=== PATIENT | female | born 1950 | race Caucasian/White ===

== ENCOUNTER 2018-04-28 18:59 | Inpatient (IN) | payer MEDICARE ==
[~2018-04-28] VITALS: Ht 165.1 cm; Wt 74.8 kg
--- NOTE | 2018-04-28 18:59 | NUR ---
BIB SMART TEAM ON 5150 HOLD FOR MEDICAL CLEARANCE TO [facility] DUE TO DEPRESSION WITH SUICIDAL IDIATION. VSS NAD A/OX3 ABLE TO MAKE NEEDS KNOWN. PT IS NOTED ACTING MANIC. WILL CONITNUE TO MONITOR FOR ANY CHANGES DURING THE SHIFT.
[2018-04-28 20:08] LABS: BASOPHILS % (AUTO) 0.4 % (0.0-2.0); EOSINOPHILS % (AUTO) 0.4 % (0.0-6.0); HEMATOCRIT 42 % (33-45); HEMOGLOBIN 14.4 g/dL (11.5-14.8); LYMPHOCYTES # (AUTO) 1.5 /CMM (0.8-4.8); MEAN CORPUSCULAR HEMOGLOBIN 31 PG (26.0-33.0); MEAN CORPUSCULAR HGB CONC 34 g/dl (31.0-36.0); MEAN CORPUSCULAR VOLUME 90 fL (82-100); MONOCYTES # (AUTO) 0.4 /CMM (0.1-1.30); MONOCYTES % (AUTO) 3.9 % (2.0-12.0); NEUTROPHILS # (AUTO) 7.5 /CMM (1.8-8.9); NEUTROPHILS % (AUTO) 79.3 % (43.0-81.0); PLATELET COUNT (AUTO) 308 /CMM (150-450); RDW COEFFICIENT OF VARIATION 12.7 (11.5-15.0); RED BLOOD CELL COUNT(AUTO) 4.72 MIL/uL (4.0-5.2); WHITE BLOOD COUNT (AUTO) 9.4 K/uL (4.3-11.0)
[2018-04-28 20:19] LABS: CALCIUM, SERUM 9.3 mg/dL (8.5-10.1)
[2018-04-28 20:30] VITALS: BP 135/84
--- NOTE | 2018-04-28 20:30 | NUR ---
GPS-RN ADMITTED A 67-Y/O FEMALE, ADMITTED FROM ER INITIALLY FROM HOME. PATIENT ADMITTED ON 5150 PER HOLD PATIENT STATED " THE VOICES ARE TELLING ME TO KILL MYSELF AND I WANT TO ". UPON FACE TO FACE ASSESSMENT, PATIENT APPEARS TO BE ALERT, ORIENTED X1, CONFUSED, ANXIOUS, RESTLESS, EASILY AGITATED, NEEDY AND IRRITABLE. NO ACUTE DISTRESS NOTED. CONTINENT OF BOWEL AND BLADDER. NO C/O PAIN OR DISCOMFORT AT THIS TIME. AMBULATORY WITH A STEADY GAIT. DENIES ANY S/I OR HI AT THIS TIME. PATIENT STILL HEARING VOICES "TELLING HER THAT SHE'S GONNA BE FINE" AND HER RASHES CAME FROM [facility]. BELONGINGS INVENTORIED AND CHECKED FOR CONTRABAND. REVIEWED PATIENT'S RIGHTS. PATIENT IS UNDER THE PSYCHIATRIC CARE OF DR. GLOVER, ORDERS OBTAINED, AND UNDER THE MEDICAL CARE OF EDILMA, NOTIFIED OF ADMISSION AND MED RECON DONE. SKIN ASSESSMENT DONE AND NOTED GENERALIZED RASH, REDNESS UNDER RIGHT EYE, BILATERAL WRIST BRUISES. MRSA SCREENING DONE. BED LOCKED AND PLACED IN LOWEST POSITION. ROOM SAFETY CHECKED. FALL PRECAUTIONS MAINTAINED. WILL CONTINUE TO MONITOR Q15MIN ROUNDS FOR SAFETY.
--- NOTE | 2018-04-28 20:50 | NUR ---
REPORT GIVEN TO CHARGE NURSE IN [facility]
[2018-04-28 20:54] LABS: APPEARANCE,URINE Clear (CLEAR); BILIRUBIN,URINE Negative (NEGATIVE); BLOOD, URINE Trace-intact Ery/uL (NEGATIVE); COLOR,URINE Yellow (YELLOW); KETONES,URINE 40 (NEGATIVE); LEUKOCYTE ESTERASE ,URINE Small (NEGATIVE); NITRITE, URINE Negative (NEGATIVE); PROTEIN,URINE Negative (NEGATIVE); UGLUCOSE Negative (NEGATIVE); UROBILINOGEN,URINE 0.2 EU/dL (0.2)
[2018-04-28 21:06] LABS: BACTERIA,URINE 2+ /HPF (None Seen); MUCUS,URINE Few /LPF (None Seen); SQUAMOUS EPITHELIAL CELL,UR Few /HPF (None Seen); WBC,URINE 21-50 /HPF (0-3)
[2018-04-28] MEDS ORDERED: TEMAZEPAM 7.5 MG CAPSULE PO PRN (21:30)
[2018-04-28] MEDS ORDERED: MAGNESIUM HYDROXIDE 30 ML UDC PO PRN (21:30)
[2018-04-28] MEDS ORDERED: ACETAMINOPHEN 325 MG TABLET PO PRN (21:30)
[2018-04-28] MEDS ORDERED: LORAZEPAM 1 MG TABLET PO PRN (21:30)
[2018-04-28] MEDS ORDERED: MAG HYDROX/AL HYDROX/SIMETH 30 ML UDC PO PRN (21:30)
[2018-04-28] MEDS ORDERED: ASPI-1169 PO (22:12)
[2018-04-28] MEDS ORDERED: SERT50TA PO (22:12)
--- NOTE | 2018-04-28 22:30 | NUR ---
GP-RN CALLED DR. FRANCE REGARDING PATIENT'S GENERALIZED RASH, PER MD NO NEW ORDERS GIVEN. HAVE THE WOUND CARE NURSE ASSESS PATIENT IN THE MORNING. HANDWASHING TECHNIQUE OBSERVED AT ALL TIMES. WILL CONTINUE TO MONITOR.
[2018-04-29 08:00] VITALS: BP 147/73
[2018-04-29] MEDS: ASPIRIN 81 MG TAB.CHEW PO SCH (08:36)
--- NOTE | 2018-04-29 11:13 | NUR ---
GPS/RN PER DR JUAN ALBERTO AHUMADA, PUT IN ORDER FOR SKIN SCRAPPING TO RULE OUT SCABIES. NOTIFIED ANOMI IN INFECTION CONTROL.
[2018-04-29] MEDS: CEPHALEXIN MONOHYDRATE 500 MG CAPSULE PO SCH ×2 (12:15→20:45)
[2018-04-29] MEDS: risperiDONE 1 MG TABLET PO SCH ×2 (14:39→17:16)
[2018-04-29] MEDS: BENZTROPINE MESYLATE (1 MG) 1 MG TABLET PO SCH ×2 (14:39→17:15)
[2018-04-29] MEDS: SERTRALINE HCL 25 MG TABLET PO SCH (14:39)
--- NOTE | 2018-04-29 15:03 | NUR ---
WOUND CARE CONSULT: PT PRESENTS WITH BUMPY RASH WITH TINY SCABS AND SCRATCH CUENCA ON BACK, ARMS AND LEGS, FEW ON CHEST, PRESENT ON ADMISSION. PT HAVING SKIN SCRAPING BY INFECTION CONTROL NURSE. PT ALSO NOTED TO HAVE REDNESS AROUND EYES, ESPECIALLY RT EYE AND REDNESS, BRUISING ON WRISTS, PRESENT ON ADMISSION. PT IS INDEPENDENT WITH BED MOBILITY AND CONTINENT. DEFER TO MD FOR RASH/BUMPS. WILL SEE PRN. MD IN AGREEMENT WITH PLAN OF CARE. Addendum: 04/29/18 at 1505 by DENISE MIRANDA WNDNU Amended: Links added.
--- NOTE | 2018-04-29 15:19 | NUR ---
GPS/RN SEEN BY INFECTION CONTROL (NAOMI) SCRAPING DONE. SEEN Y WOUND NURSE
--- NOTE | 2018-04-29 15:23 | NUR ---
GPS/RN SAMPLE FROM SCRAPING TAKEN TO LAB.
[2018-04-29 16:00] VITALS: BP 124/67
--- NOTE | 2018-04-29 17:56 | NUR ---
GPS/RN PATHOLOGY STILL PENDING TO RULE OUT SCABIES.
[2018-04-29 21:00] VITALS: BP 126/63
[2018-04-30 08:00] VITALS: BP 120/68
[2018-04-30] MEDS: ASPIRIN 81 MG TAB.CHEW PO SCH (08:25)
[2018-04-30] MEDS: CEPHALEXIN MONOHYDRATE 500 MG CAPSULE PO SCH ×2 (08:25→21:34)
[2018-04-30] MEDS: BENZTROPINE MESYLATE (1 MG) 1 MG TABLET PO SCH ×2 (08:25→18:09)
[2018-04-30] MEDS: SERTRALINE HCL 25 MG TABLET PO SCH (08:26)
[2018-04-30] MEDS: risperiDONE 1 MG TABLET PO SCH ×2 (08:26→18:09)
--- NOTE | 2018-04-30 08:30 | NUR ---
GPS RN NOTE: RECEIVED PATIENT AWAKE AND ALERT X 3, SITTING IN BED. CONTACT ISOLATION FOR PRESUMED SCABIES, RESULTS PENDING. PATIENT MED COMPLIANT, EATING WELL. STATES NOT HEARING VOICES, HAS RACING THOUGHTS WHICH SHE STATES ARE IMPROVING SINCE YESTERDAY. DENIES PAIN, SI/HI/HALLUCINATIONS AND IN NO APPARENT DISTRESS. WILL CONTINUE TO MONITOR FOR SAFETY AND COMFORT Q 15 MINUTES.
[2018-04-30 08:35] LABS: BASOPHILS # (AUTO) 0.2 /CMM (0.0-0.2); BASOPHILS % (AUTO) 3.1 % (0.0-2.0); EOSINOPHILS % (AUTO) 0.7 % (0.0-6.0); HEMATOCRIT 45 % (33-45); HEMOGLOBIN 15.2 g/dL (11.5-14.8); LYMPHOCYTES # (AUTO) 1.3 /CMM (0.8-4.8); LYMPHOCYTES % (AUTO) 19.2 % (20.0-44.0); MEAN CORPUSCULAR HEMOGLOBIN 31 PG (26.0-33.0); MEAN CORPUSCULAR HGB CONC 34 g/dl (31.0-36.0); MEAN CORPUSCULAR VOLUME 90 fL (82-100); MONOCYTES # (AUTO) 0.4 /CMM (0.1-1.30); MONOCYTES % (AUTO) 6.1 % (2.0-12.0); NEUTROPHILS % (AUTO) 70.9 % (43.0-81.0); PLATELET COUNT (AUTO) 325 /CMM (150-450); RDW COEFFICIENT OF VARIATION 12.3 (11.5-15.0); RED BLOOD CELL COUNT(AUTO) 4.99 MIL/uL (4.0-5.2); WHITE BLOOD COUNT (AUTO) 6.9 K/uL (4.3-11.0)
[2018-04-30 08:51] LABS: BILIRUBIN,TOTAL 0.6 mg/dL (0.2-1.0); CALCIUM, SERUM 9.3 mg/dL (8.5-10.1); POTASSIUM 3.9 mmol/L (3.5-5.1); TOTAL PROTEIN, SERUM 7.5 g/dL (6.4-8.2)
--- NOTE | 2018-04-30 13:05 | NUR ---
PATIENT SCRAPINGS NEG FOR SCABIES, DISCONTINUED CONTACT ISOLATION PER INFECTION CONTROL. PATIENT MADE AWARE OF STATUS. NO DISTRESS, NO COMPLAINTS AT THIS TIME.
--- NOTE | 2018-04-30 14:40 | NUR ---
INITIAL DISCHARGE PLAN: Pt wishes to return home to [address] [place] [address] [address] [place] [address] . HOLLIE will help form a safe and proper discharge home in collaboration with .
--- NOTE | 2018-04-30 14:40 | NUR ---
SW attempted to contact pts sister Latisha Davis [phone] to discuss initial discharge plan. SW was unable to reach and left a voicemail for callback.
[2018-04-30 16:00] VITALS: BP 136/80
--- NOTE | 2018-04-30 16:05 | NUR ---
GPS CONTACT CENTER CONSULTANT NOTE: RECEIVED TRANSFER ORDERS TO [facility] PER MD, PATIENT HAS BACTERIAL INFECTION E. COLI, KLEBSIELLA ORGANISMS IN DISCHARGE FROM [facility]. PATIENT MADE AWARE OF REASON FOR TRANSFER, FAMILY MADE AWARE OF NEW ROOM AND REASON FOR TRANSFER. PATIENT ALERT X 1, NO APPARENT DISTRESS, NO COMPLAINTS BUT REFUSED SKIN ASSESSMENT UPON TRANSFER. TRANSFERRED AT 1600 VIA YAYA CHAIR WITH RN/VICTOR HUGO ESCORT AND ALL PATIENT BELONGINGS. REPORT GIVEN TO HEBERT DAVENPORT IN ROOM 322-B. Addendum: 04/30/18 at 1613 by ABDELRAHMAN MILLS RN DISREGARD, THIS NOTE WAS FOR A DIFFERENT PATIENT
--- NOTE | 2018-04-30 16:06 | NUR ---
DISREGARD PREVIOUS NOTE (DISCHARGE NOTE WAS IN ERROR)
[2018-04-30] MEDS ORDERED: PERMETHRIN 5% CRM 60 GM TUBE TP ONE (18:00)
[2018-04-30 20:08] VITALS: BP_SYST 107; BP_SYST 132; BP_DIAS 67; BP_DIAS 76
[2018-05-01 08:00] VITALS: BP 123/62
[2018-05-01] MEDS: ASPIRIN 81 MG TAB.CHEW PO SCH (08:40)
[2018-05-01] MEDS: SERTRALINE HCL 25 MG TABLET PO SCH (08:40)
[2018-05-01] MEDS: CEPHALEXIN MONOHYDRATE 500 MG CAPSULE PO SCH ×2 (08:40→21:01)
[2018-05-01] MEDS: risperiDONE 1 MG TABLET PO SCH ×2 (08:40→16:09)
[2018-05-01] MEDS: BENZTROPINE MESYLATE (1 MG) 1 MG TABLET PO SCH ×2 (08:40→16:09)
--- NOTE | 2018-05-01 10:30 | NUR ---
GPS/RN PATIENT HAD SHOWER TO REMOVE ELIMITE CREAM.
[2018-05-01 17:01] VITALS: BP 120/70
[2018-05-01 20:36] VITALS: BP 105/55
[2018-05-02 08:00] VITALS: BP 108/56
--- NOTE | 2018-05-02 08:00 | NUR ---
GPS RN AM NOTES; RECEIVED PATIENT AWAKE AND AMBULATING ALONG THE HALLWAY WITHOUT C/O PAIN OR DISTRESS.NO ACUTE DISTRESS NOTED, ISOLATIVE,WITH SOCIAL INTERACTIONS WITH ROOMATE-SINGING TOGETHER WITH HER ROOMATE..VERBALIZATION OF FEELINGS ENCOURAGED. DENIES SI/HI. DENIES A/V HALLUCINATION AT THIS TIME. NO C/O PAIN OR DISCOMFORT. MED COMPLIANT. ALL NEEDS ATTENDED AND ANTICIPATED. WILL CONTINUE TO MONITOR Q15MIN ROUNDS FOR SAFETY AND BEHAVIOR.
[2018-05-02] MEDS: SERTRALINE HCL 25 MG TABLET PO SCH (09:22)
[2018-05-02] MEDS: CEPHALEXIN MONOHYDRATE 500 MG CAPSULE PO SCH ×2 (09:22→21:38)
[2018-05-02] MEDS: ASPIRIN 81 MG TAB.CHEW PO SCH (09:22)
[2018-05-02] MEDS: BENZTROPINE MESYLATE (1 MG) 1 MG TABLET PO SCH ×2 (09:22→16:54)
[2018-05-02] MEDS: risperiDONE 1 MG TABLET PO SCH ×2 (09:22→16:54)
--- NOTE | 2018-05-02 09:45 | NUR ---
HOLLIE spoke with pts sister Latisha Davis [phone] to discuss discharge plan. Pts sister confirmed that pt is able to return home upon discharge. Addendum: 05/02/18 at 0946 by GRAHAM BROWNE Pts sister also stated that she would be transporting pt home via private vehicle once stable for discharge.
[2018-05-02 16:00] VITALS: BP 109/62
--- NOTE | 2018-05-02 19:30 | NUR ---
pt is awake, verbally responsive, sitting up in bed, pt's sister at bed side. call light within reach. all needs attended. will cont to monitor.
[2018-05-02 20:00] VITALS: BP 111/69
[2018-05-03 08:00] VITALS: BP 106/56
[2018-05-03] MEDS: ASPIRIN 81 MG TAB.CHEW PO SCH (09:04)
[2018-05-03] MEDS: BENZTROPINE MESYLATE (1 MG) 1 MG TABLET PO SCH (09:04)
[2018-05-03] MEDS: SERTRALINE HCL 25 MG TABLET PO SCH (09:04)
[2018-05-03] MEDS: risperiDONE 1 MG TABLET PO SCH (09:04)
[2018-05-03] MEDS: CEPHALEXIN MONOHYDRATE 500 MG CAPSULE PO SCH (09:04)
--- NOTE | 2018-05-03 09:21 | NUR ---
DR. OLMEDO GAVE AN ORDER TO D/C HOLD AND D/C HOME AND TO FOLLOW UP WITH PSYCH AND MEDICAL DOCTORS.
--- NOTE | 2018-05-03 13:28 | NUR ---
RN NOTE: PATIENT DISCHARGED AT 1325. PATIENT LEFT WITH SISTER. MEDICALLY STABLE. DENIES SI/HI DURING DISCHARGE. DENIES COMMAND HALLUCINATIONS. PSYCHIATRIST GAVE DISCHARGE ORDER AND DISCONTINUE HOLD WITH PRESCRIPTIONS. PHARMACIST HELPER MADE AWARE AND AGREES. PATIENT SIGNED FOR BELONGINGS AND EXIT CARE PAPERS. EXIT CARE INSTRUCTIONS GIVEN TO BOTH SISTER AND PATIENT. SKIN ASSESSMENT REFUSED. STATES HER BUMPS ARE HEALED.
--- NOTE | 2018-05-03 14:40 | NUR ---
DISCHARGE NOTE: Pt was discharged at 1:00pm via private vehicle home to [address] [place] [address] [address], [facility], [address] by pts sister Latisha Davis [phone]. Pt appeared in a happy mood with congruent affect. Pt denied suicidal/homicidal ideations and denied visual/auditory hallucinations. Patient was provided with a mental health referral to [facility] [place] [id number] and medical referral to [address] [phone]. Pt reported she would call [facility] to schedule an intake appointment on Sunday May 06, 2018. The multidisciplinary exitcare form was done, printed, signed, and given to the patient.
== END 2018-05-03 13:25 | disposition home or self-care (01) | DRG 885 ==
LOC: ER 19:14 → GPS 20:39
PROVIDERS: ADMIT Psychiatry & Neurology Psychosomatic Medicine; ATTEND Psychiatry & Neurology Psychosomatic Medicine
DX: F25.9 Schizoaffective disorder, unspecified (principal); R45.851 Suicidal ideations; N39.0 Urinary tract infection, site not specified; F29 Unspecified psychosis not due to a substance or known physiological condition; F32.9 Major depressive disorder, single episode, unspecified; Z91.19 Patient's noncompliance with other medical treatment and regimen; B86 Scabies; E66.9 Obesity, unspecified
CPT/HCPCS: 36415; 80048-TC; 80053-TC; 80061-TC; 80305; 81000-TC; 82962-TC; 85025-TC; 87081-TC; 87086-TC; A4606; Z7610